=== PATIENT | female | born 1975 | race Caucasian/White ===

== ENCOUNTER 2022-04-12 07:46 | Emergency (ER) | payer BC ==
[~2022-04-12] VITALS: Ht 162.6 cm; Wt 72.0 kg
[~2022-04-12 07:46] MED LIST: AUGMENTIN875TAB PO; HYDROCO/APAP1 T10 PO; OXYCO/APAP1 TA5 PO; PREDNISONE20 MG PO; XARELTO15 MG PO; XARELTO20 MG PO; ZOVIRAX800 MG PO
[2022-04-12 07:53] VITALS: BP 146/81
[2022-04-12 08:00] VITALS: BP 140/82
[2022-04-12 08:48] VITALS: BP 126/69
[2022-04-12 08:49] LABS: BASO% 0.7 % (0-3); EOS% 2.5 % (0-8); HEMATOCRIT 45.5 % (37.0-47.0); HEMOGLOBIN 14.5 g/dl (12.0-16.0); IMMATURE GRANULOCYTES 0.6 % (0.0-5.0); LYMPH% 17.6 % (15-41); MEAN CELL VOLUME 91.4 fL CALC (80.0-100.0); MEAN CORPUSCULAR HGB 29.1 pG CALC (26.0-32.0); MEAN CORPUSCULAR HGB CONC 31.9 g/dL CAL (32.0-36.0); MONO% 9.4 % (2-13); NEUT# 6.04 thou/uL (2.00-7.15); NEUT% 69.2 % (42-76); RED BLOOD COUNT 4.98 mill/uL (4.20-5.60)
[2022-04-12 08:59] LABS: ALBUMIN 4.7 g/dL (3.2-5.0); ALKALINE PHOSPHATASE 75 u/l (38-126); ANION GAP 14 (6-22 (CALC)); BILIRUBIN, TOTAL 0.3 mg/dL (0.02-1.3); BUN 8 mg/dL (7-17); BUN/CREATININE RATIO 12 (12-20 (CALC)); CARBON DIOXIDE 24 mmol/l (22-30); CHLORIDE 108 mmol/l (95-108); CREATININE 0.6 mg/dL (0.5-1.0); GFR FOR AFR.AMER. > 60 ML/MIN (>=60 (CALC)); GFR OTHER RACES > 60 ML/MIN (>=60 (CALC)); POTASSIUM 3.9 mmol/l (3.5-5.1); SGOT/AST 35 u/l (14-36); SODIUM 142 mmol/l (137-146); TOTAL PROTEIN 7.6 g/dL (6.3-8.2)
[2022-04-12 09:00] VITALS: BP 130/64
[2022-04-12] MEDS ORDERED: ZPAK PO (09:08)
[2022-04-12 09:15] VITALS: BP 130/64
== END 2022-04-12 09:20 | disposition home or self-care (01) | DRG 125 ==
LOC: ED 07:46
PROVIDERS: Family Medicine
DX: H53.8 Other visual disturbances (principal); J06.9 Acute upper respiratory infection, unspecified; Z20.822 Contact with and (suspected) exposure to COVID-19